=== PATIENT | female | born 1950 | race Caucasian/White ===

== ENCOUNTER 2018-05-10 08:18 | Day surgery (SDC) | payer MEDICARE ==
[~2018-05-10] VITALS: Ht 162.6 cm; Wt 86.6 kg
[~2018-05-10 08:18] MED LIST: ACTONEL150 MG PO; ADLT ASA LOW81 MG PO; ALENDRONATE70 MG PO; AMLODIPINE5 MG PO; AMOXICILLIN500 MG PO; ASPIRIN CHEWABL81 MG PO; CALCIUM + D600 MG PO; CALCIUM500 M5 OR; CENTRUM FLAVOR; CENTRUM ULTRA WOMENS PO; CINNAMON500 MG PO; CIPRO500 MG PO; D31000 UNIT PO; ESTRACE VAG0.1 MG/GM VA; FISH OIL1000 MG PO; FISH OIL1200 M1 PO; FLEXERIL PO; FLONASE SPRAY50 MC1; GINGER; GINGER ROOT550 MG PO; HCT PO; HYZAAR1 TA1 OR; LEVOTHYROXIN150 MC1 OR; LEVOTHYROXIN175 MC1 PO; LOPRESSOR25 MG PO; LORTAB 7.57.5 MG PO; LOSARTAN PO; LOSARTAN POT100 MG PO; LOSARTAN POT50 MG PO; LOVASTATIN40 M1 PO; MAGNESIUM500 MG PO; METFORMIN500 M1 PO; METOPROLOL SUCC25 MG PO; METOPROLOL25 M1 OR; MUCINEX D1 TAB PO; MULTI VIT PO; NAPROSYN500 MG PO; PERCOCET 5/325M1 TAB PO; POTASSIUM; POTASSIUM GLUC550 MG PO; PRAVASTATIN20 MG PO; PRILOSEC20 MG PO; RANITIDINE150 MG PO; RANITIDINE75 M3 PO; SIMVASTATIN40 MG PO; SM POTASSIUM PO; STOOL SOFTENER100 MG PO; ULTRAM50 M1 PO; [UNRECOGNIZED DRUG - MIXTURE] OR; [UNRECOGNIZED DRUG - OTHER] PO
[2018-05-10 11:25] VITALS: BP 105/59
== END 2018-05-10 11:19 | disposition home or self-care (01) ==
LOC: ENDO 08:18 → ORM 10:55 → ENDO 10:55 → ORM 12:30 → ENDO 12:30
PROVIDERS: ATTEND Internal Medicine Gastroenterology
PROC: 0D758ZZ Dilation of Esophagus, Via Natural or Artificial Opening Endoscopic (ICD-10-PCS; principal; 2018-05-10)
PROC: 0DB48ZX Excision of Esophagogastric Junction, Via Natural or Artificial Opening Endoscopic, Diagnostic (ICD-10-PCS; 2018-05-10)
PROC: 0DB28ZX Excision of Middle Esophagus, Via Natural or Artificial Opening Endoscopic, Diagnostic (ICD-10-PCS; 2018-05-10)
DX: K22.2 Esophageal obstruction (principal); K21.0 Gastro-esophageal reflux disease with esophagitis; K22.8 Other specified diseases of esophagus; K29.70 Gastritis, unspecified, without bleeding; K44.9 Diaphragmatic hernia without obstruction or gangrene; K57.30 Diverticulosis of large intestine without perforation or abscess without bleeding; I10 Essential (primary) hypertension; E11.9 Type 2 diabetes mellitus without complications; E78.00 Pure hypercholesterolemia, unspecified; Z80.0 Family history of malignant neoplasm of digestive organs

== ENCOUNTER → 2018-07-24 | Outpatient (REF) | payer MEDICARE | END | disposition home or self-care (01) | LOC: LAB 07:25 | PROVIDERS: ATTEND Nurse Practitioner | DX: E03.4 Atrophy of thyroid (acquired) (principal) ==

== ENCOUNTER → 2018-08-15 | Outpatient (REF) | payer MEDICARE ==
[2018-08-15 10:12] LABS: TSH, 3RD GENERATION 2.54 uIU/mL (0.47 - 4.68)
== END | disposition home or self-care (01) ==
LOC: LAB 08:00
PROVIDERS: ATTEND Nurse Practitioner
DX: E03.9 Hypothyroidism, unspecified (principal)

== ENCOUNTER 2019-01-10 03:09 | Observation (INO) | payer MEDICARE ==
[~2019-01-10] VITALS: Ht 162.6 cm; Wt 85.4 kg
[2019-01-10 03:53] LABS: HEMATOCRIT 38.7 % (37.0-47.0); HEMOGLOBIN 12.2 g/dl (12.0-16.0); IMMATURE GRANULOCYTES 0.3 % (0.0-5.0); MEAN CELL VOLUME 85.1 fL CALC (80.0-100.0); MEAN CORPUSCULAR HGB 26.8 pG CALC (26.0-32.0); MEAN CORPUSCULAR HGB CONC 31.5 g/L CALC (32.0-36.0); NEUT# 6.39 thou/uL (2.00-7.15); RED BLOOD COUNT 4.55 mill/uL (4.20-5.60); RED CELL DISTRI WIDTH 13.2 % (11.5-15.5)
[2019-01-10 04:18] LABS: ALBUMIN 4.4 g/dL (3.2-5.0); ALKALINE PHOSPHATASE 86 u/l (38-126); AMYLASE 61 u/l (30-110); ANION GAP 13 (6-22 (CALC)); BILIRUBIN, TOTAL 0.5 mg/dL (0.0-1.4); BUN 20 mg/dL (8-23); BUN/CREATININE RATIO 25 (12-20 (CALC)); CARBON DIOXIDE 30 mmol/l (22-30); CHLORIDE 102 mmol/l (95-108); CREATININE 0.8 mg/dL (0.5-1.0); GFR > 60 ML/MIN (>=60 (CALC)); GFR FOR AFR.AMER. > 60 ML/MIN (>=60 (CALC)); LIPASE 91 u/l (23-300); SGOT/AST 26 u/l (9-36); SODIUM 141 mmol/l (137-146); TOTAL PROTEIN 7.4 g/dL (6.3-8.2)
[2019-01-10 04:31] LABS: MYOGLOBIN 35 ng/mL (0 - 62)
[2019-01-10 05:33] LABS: URINE BILIRUBIN - DIPSTICK NEGATIVE (NEGATIVE); URINE BLOOD DIPSTICK TRACE-LYSED (NEGATIVE); URINE COLOR YELLOW; URINE GLUCOSE - DIPSTICK NEGATIVE (NEGATIVE); URINE KETONE NEGATIVE (NEGATIVE); URINE LEUK ESTERASE TRACE (NEGATIVE); URINE NITRITE - DIPSTICK NEGATIVE (Negative); URINE PH 6.5 (4.5-8.0); URINE PROTEIN - DIPSTICK NEGATIVE (NEG-TRACE); URINE UROBILINOGEN - DIPSTICK 0.2 E.U./dL (0.2)
[2019-01-10 06:01] VITALS: BP 145/75
[2019-01-10 08:49] VITALS: BP 120/59
[2019-01-10] MEDS ORDERED: OMEPRAZOLE20 M2 PO (10:28)
[2019-01-10] MEDS ORDERED: DOCUSATE SOD100 M2 PO (10:30)
[2019-01-10] MEDS ORDERED: PRAVASTATIN SOD20 MG PO (10:31)
[2019-01-10] MEDS ORDERED: ASPIRIN 81 LOW81 MG PO (10:33)
[2019-01-10] MEDS ORDERED: GINGER ROOT550 MG PO (10:34)
[2019-01-10] MEDS ORDERED: K-99 PO (10:35)
[2019-01-10] MEDS ORDERED: MAGNESIUM 250 M1 TAB PO (10:36)
[2019-01-10] MEDS ORDERED: [UNRECOGNIZED DRUG - OTHER] PO (10:37)
[2019-01-10] MEDS ORDERED: LEVOTHYROXINE112 MCG PO (10:39)
[2019-01-10] MEDS ORDERED: RANITIDINE150 M1 PO (10:40)
[2019-01-10] MEDS ORDERED: FISH OIL1 CAP PO (10:41)
[2019-01-10] MEDS ORDERED: COZAAR100 MG PO (10:43)
[2019-01-10] MEDS ORDERED: CINNAMON500 MG PO (10:44)
[2019-01-10] MEDS ORDERED: D31000 UNIT PO (10:46)
[2019-01-10 11:00] VITALS: BP 107/60
[2019-01-10] MEDS ORDERED: NITROSTAT0.4 MG SL (13:33)
[2019-01-10 14:27] VITALS: BP 114/65
== END 2019-01-10 15:50 | disposition home or self-care (01) ==
LOC: ED 03:09 → ED-I 04:31 → ED 05:12 → MS2 05:13
PROVIDERS: Emergency Medicine; ADMIT Internal Medicine; ATTEND Internal Medicine
DX: R07.9 Chest pain, unspecified (principal); I10 Essential (primary) hypertension; E78.5 Hyperlipidemia, unspecified; E03.9 Hypothyroidism, unspecified; Z87.891 Personal history of nicotine dependence; R06.02 Shortness of breath

== ENCOUNTER 2021-01-06 12:51 | Emergency (ER) | payer MEDICARE ==
[~2021-01-06 12:51] MED LIST changes: +ASPIRIN 81 LOW81 MG PO; +COZAAR100 MG PO; +DOCUSATE SOD100 MG PO; +FISH OIL1 CAP PO; +K-99 PO; +LEVOTHYROXINE112 MCG PO; +MAGNESIUM 250 M1 TAB PO; +NITROSTAT0.4 MG SL; +OMEPRAZOLE20 M2 PO; +PRAVASTATIN SOD20 MG PO; +RANITIDINE150 M1 PO; +[UNRECOGNIZED DRUG - OTHER] PO
[2021-01-06] MEDS ORDERED: LEVOTHYROXIN100 MC1 PO (14:16)
[2021-01-06] MEDS ORDERED: AMLODIPINE BESYL5 MG PO (14:17)
[2021-01-06] MEDS ORDERED: OMEPRAZOLE DR20 MG PO (14:18)
[2021-01-06] MEDS ORDERED: ATORVASTATIN CA20 MG PO (14:18)
[2021-01-06] MEDS ORDERED: ASPIRIN81 MG PO (14:22)
[2021-01-06] MEDS ORDERED: OMEGA 31000 MG PO (14:22)
[2021-01-06 15:00] VITALS: BP 171/74
== END 2021-01-06 15:00 | disposition home or self-care (01) ==
LOC: ED 12:51
DX: S53.401A Unspecified sprain of right elbow, initial encounter (principal); E11.9 Type 2 diabetes mellitus without complications; I10 Essential (primary) hypertension; K21.9 Gastro-esophageal reflux disease without esophagitis; E78.00 Pure hypercholesterolemia, unspecified; X50.0XXA Overexertion from strenuous movement or load, initial encounter; Y93.89 Activity, other specified; Y92.007 Garden or yard of unspecified non-institutional (private) residence as the place of occurrence of the external cause

== ENCOUNTER 2021-07-13 08:02 | Day surgery (SDC) | payer MEDICARE ==
[~2021-07-13] VITALS: Ht 162.6 cm; Wt 84.4 kg
[~2021-07-13 08:02] MED LIST changes: +AMLODIPINE BESYL5 MG PO; +ASPIRIN81 MG PO; +ATORVASTATIN CA20 MG PO; +LEVOTHYROXIN100 MC1 PO; +OMEGA 31000 MG PO; +OMEPRAZOLE DR20 MG PO
[2021-07-13 10:35] VITALS: BP 157/64
== END 2021-07-13 10:24 | disposition home or self-care (01) ==
LOC: ENDO 08:02
PROVIDERS: ATTEND Surgery
PROC: 0DJD8ZZ Inspection of Lower Intestinal Tract, Via Natural or Artificial Opening Endoscopic (ICD-10-PCS; principal; 2021-07-13)
DX: Z12.11 Encounter for screening for malignant neoplasm of colon (principal); K57.30 Diverticulosis of large intestine without perforation or abscess without bleeding; K64.8 Other hemorrhoids; Z87.891 Personal history of nicotine dependence

== ENCOUNTER 2023-03-06 19:14 | Emergency (ER) | payer MEDICARE ==
[~2023-03-06] VITALS: Ht 162.6 cm; Wt 86.0 kg
[2023-03-06] MEDS ORDERED: AMOX/K CLAV875 M1 PO (23:14)
[2023-03-06] MEDS ORDERED: MOTRIN800 MG PO (23:14)
[2023-03-06 23:27] VITALS: BP 181/87
== END 2023-03-06 23:27 | disposition home or self-care (01) ==
LOC: ED 19:14
DX: S81.051A Open bite, right knee, initial encounter (principal); I10 Essential (primary) hypertension; E11.9 Type 2 diabetes mellitus without complications; K21.9 Gastro-esophageal reflux disease without esophagitis; E78.00 Pure hypercholesterolemia, unspecified; W54.0XXA Bitten by dog, initial encounter; Y92.410 Unspecified street and highway as the place of occurrence of the external cause

== ENCOUNTER 2023-05-26 13:13 | Emergency (ER) | payer MEDICARE ==
[~2023-05-26] VITALS: Ht 162.6 cm; Wt 70.0 kg
[2023-05-26] VITALS (7 sets, daily range): BP systolic 136–165; BP diastolic 65–93
[~2023-05-26 13:13] MED LIST changes: +AMOX/K CLAV875 M1 PO; +MOTRIN800 MG PO
[2023-05-26] MEDS ORDERED: MELOXICAM15 MG PO (14:54)
== END 2023-05-26 15:29 | disposition home or self-care (01) ==
LOC: ED 13:13
DX: S90.31XA Contusion of right foot, initial encounter (principal); I10 Essential (primary) hypertension; E11.9 Type 2 diabetes mellitus without complications; W22.03XA Walked into furniture, initial encounter; Y92.003 Bedroom of unspecified non-institutional (private) residence as the place of occurrence of the external cause